=== PATIENT | male | born 1960 | race Two or more races ===

== ENCOUNTER 2022-03-04 12:30 | Emergency (ER) | payer OTHER ==
[~2022-03-04] VITALS: Ht 175.3 cm; Wt 108.9 kg
[2022-03-04] MEDS ORDERED: ZESTRIL20 MG (13:00)
[2022-03-04] MEDS ORDERED: AMLODIPINE-OLM1 EAC1 PO (13:01)
[2022-03-04] MEDS ORDERED: ZERVIATE1 EACH (13:01)
== END 2022-03-04 20:50 | disposition home or self-care (01) ==
LOC: ER 12:30
DX: U07.1 COVID-19 (principal); J44.9 Chronic obstructive pulmonary disease, unspecified